=== PATIENT | male | born 1935 | race Caucasian/White ===

== ENCOUNTER 2019-06-05 07:35 | Day surgery (SDC) | payer MEDICARE, OTHER, SELFPAY ==
--- NOTE | 2019-06-05 | PATH_ITS ---
[facility] Accession Number: [id number] . 01 Material submitted: . PART A: small bowel - 1 SMALL BOWEL PART B: gastrointestinal site - GASTRIC BX . 01 Clinical history: . EGD W/POSS BX . 02 Diagnosis: A. Small Bowel, Biopsy: Focal active duodenitis; please see comment. Negative for features of sprue, granulomata, dysplasia or malignancy. . B. Stomach, Biopsies: Helicobacter pylori gastritis. Abundant forms morphologically consistent with Helicobacter pylori seen on H/E stain. Negative for intestinal metaplasia. Negative for dysplasia or malignancy. [facility] 06/06/2019 1308 Local . 02 Comment: A. The finding of mild active duodenitis may be secondary to Helicobacter pylori gastritis. That said, this finding also raises the possibility of infection or drug/toxin-induced injury. . 02 Electronically signed: . Alberto Cabello MD, PhD, Pathologist NPI- [id number] . 01 Gross description: . Part A: 1 SMALL BOWEL: Received in formalin are 4 fragment(s) of hammond, soft tissue measuring 0.2 x 0.2 x 0.2 cm to 0.3 x 0.2 x 0.2 cm submitted entirely in 1 cassette(s) Part B: GASTRIC BX: Received in formalin are multiple fragment(s) of hammond, soft tissue measuring 0.1 x 0.1 x 0.1 cm to 0.3 x 0.2 x 0.2 cm submitted entirely in 1 cassette(s) /[facility] 06/05/2019 1908 Local . 02 Pathologist provided ICD-10: K29.70, K29.80, B96.81 . 02 CPT . 351267, [id number] Performed at: [address] [place] [address] [address], [place], [place] [id number] MD Blayne Shaw MD Phone: [phone] Performed at: [address] [id number] MD Portia Rodriguez MD Phone: [phone]
[2019-06-05 08:14] VITALS: BMI 24.4
--- NOTE | 2019-06-05 08:20 | PM.HP.1 ---
History of Present Illness History of Present Illness Date Patient Seen: 06/05/19 Time Patient Seen: 08:21 Chief complaint: [id number] EGD W/POSS BX Narrative: Patient presented for EGD. Patient describes decreased appetite and early satiety. Due to the sensation he has been inducing vomiting on a near daily basis. He also describes melena. He was seen in the office June 04, [address] Ashley, denies any other changes to his symptoms since that time. Meds Home Medications and Allergies Home Medications Medication Instructions Recorded Confirmed Type prednisolone 5 mg PO DAILY 06/05/19 06/05/19 History simvastatin [Zocor] 20 mg PO DAILY 06/05/19 06/05/19 History tamsulosin 0.8 mg PO DAILY 06/05/19 06/05/19 History umeclidinium-vilanterol [Anoro 1 inh INHALATION DAILY 06/05/19 06/05/19 History Ellipta] Allergies Allergy/AdvReac Type Severity Reaction Status Date / Time No Known Drug Allergies Allergy Verified 06/05/19 08:08 Review of Systems Review of Systems ROS Unobtainable: All systems reviewed & are unremarkable except as noted in HPI and below Exam Narrative Exam Narrative: Appears stated age Const General: cooperative and well developed Nutritional Appearance: average body habitus Orientation: oriented x3 HENMT Head: normocephalic and atraumatic Resp Effort & Inspection: normal respiratory effort and able to speak in complete sentences Auscultation: clear to auscultation bilaterally Cardio Rate: regular rate Rhythm: regular rhythm Heart Sounds: S1 normal and S2 normal GI Palpation: soft and No tender Auscultation: normal bowel sounds Skin General: dry skin Assessment & Plan Assessment & Plan narrative: 1. Melena 2. Early satiety 3. Vomiting - EGD today, further recommendations to follow
[2019-06-05] MEDS: SODIUM CHLORIDE 0.9% 1,000 ML 70 ML IV (08:25)
[2019-06-05 08:27] VITALS: BP 152/74; PULSE 68; RESP 15; TEMP 36.2; O2SAT 95
[2019-06-05] MEDS: LIDOCAINE 4% SOLN 50 ML 20 ML TOP (08:34)
--- NOTE | 2019-06-05 08:45 | PM.OP.ENDO ---
Operative Date/Time/Diagnoses Date of procedure: 06/05/19 Time of procedure: 08:35 Procedure Notes Procedure in detail: Surgeon: Tory Mondragon DO Procedure: Esophagogastroduodenoscopy with biopsy Preoperative diagnosis: 1. Early satiety 2. Vomiting 3. Melena Postoperative diagnosis: 1. Large Hiatal hernia with Elton erosions 2. Gastritis -biopsy to rule out H pylori 3. Normal-appearing small bowel with biopsies to rule celiac sprue Medications: Conscious sedation using 4% lidocaine gargle, 2 mg IV of Midazolam and 50 mcg IV of Fentanyl Preanesthesia Assessment An H and P was performed/updated and the Px?s ASA class is 2. The procedure was discussed in detail with the patient. The potential risks and complications including infection, bleeding, missed lesions, perforation, need for surgery in case of perforation, prolonged hospital stay, and were explained. A brief question and answer period was allotted and once all questions were answered, informed consent was obtained. The patient was brought back to the procedure room and placed on standard monitoring. The patient?s vital signs were monitored continuously throughout the entire procedure. Prior to starting, a timeout was performed to confirm the patient?s identity, allergies, medications, and procedure. Procedure in detail The patient was placed in left lateral decubitus position and a bite block was inserted. The tip of the upper endoscope was placed into the mouth and advanced without difficulty under direct visualization into the esophagus. Esophagus: Tortuous esophagus Stomach: Large hiatal hernia and Elton erosions Mild gastritis -antrum and body biopsied to rule out H pylori Duodenum: Abnormal appearing small bowel with biopsies to rule out celiac sprue The patient tolerated the procedure well and will be brought back to the recovery area to be discharged once criteria are met. The total physician intraservice time was 9 min. Complications There were no complications and estimated blood loss was minimal. Recommendations: Resume previous diet Continue outPx medications Follow up pathology results Consider colonoscopy if persistent symptoms Recommend proton pump inhibitor such as omeprazole 20mg b.i.d. for 8 weeks An emergency contact number was given to the patient for any complications related to the procedure
[2019-06-05] MEDS: MIDAZOLAM 5 MG/5 ML VIAL IV (08:49)
[2019-06-05] MEDS: fentaNYL 250 MCG/5 ML INJ IV (08:49)
[2019-06-05 08:54] VITALS: BP 118/62; PULSE 64; RESP 21; TEMP 36.7
[2019-06-05 08:56] VITALS: BP 109/59; PULSE 68; RESP 16; O2SAT 94
--- NOTE | 2019-06-05 09:00 | SUR.PHASEI ---
Patient arrived post procedure. Sedated but arousable by voice. VSS on arrival.
[2019-06-05 09:01] VITALS: BP 114/56; PULSE 66; RESP 22
[2019-06-05 09:12] VITALS: BP 127/57; PULSE 70; RESP 23; O2SAT 96
[2019-06-05 09:30] VITALS: BP 135/70; PULSE 67; RESP 16; TEMP 36.9; O2SAT 94
== END 2019-06-05 09:45 | disposition home or self-care (01) ==
PROVIDERS: PCP Physician Assistant Medical; Visit Provider Student in an Organized Health Care Education/Training Program
PROC: 0DJ08ZZ Inspection of Upper Intestinal Tract, Via Natural or Artificial Opening Endoscopic (ICD-10-PCS; CPT 43235; principal; 2019-06-05 15:30)
DX: K29.70 Gastritis, unspecified, without bleeding (principal); B96.81 Helicobacter pylori [H. pylori] as the cause of diseases classified elsewhere; K29.80 Duodenitis without bleeding; K44.9 Diaphragmatic hernia without obstruction or gangrene
CPT/HCPCS: 43239; J2250; J3010